=== PATIENT | female | born 1945 | race Caucasian/White ===

== ENCOUNTER 2016-03-15 08:28 | Day surgery (SDC) | payer MEDICARE, BC ==
[~2016-03-15] VITALS: Ht 161.3 cm; Wt 52.7 kg
[2016-03-15] VITALS (7 sets, daily range): BP systolic 108–140; BP diastolic 68–92; PULSE 64–88; TEMP 97.9–98
[~2016-03-15 08:28] MED LIST: ASPIRIN E.C. 8181 MG PO; ATROVENT NASAL15 ML NS; BETAPACE 120MG120 MG PO; BRILINTA90 MG PO; CALCIUM 600MG+D1 TAB PO; CALCIUM CARBONATE PO; CEPHALEXIN500 M1 PO; COLACE 100100 MG/CAP PO; HYDROCHLOR50 MG PO; INTESTINAL FORMULA PO; LIPITOR 10MG10 MG PO; LIPITOR 40MG TA40 MG PO; NEXIUM 20MG20 MG PO; NITROSTAT0.4 MG/TAB SL; OCUVITE1 TA1 PO; OMEPRAZOLE20 MG PO; PRADAXA 150MG150 MG PO; PROTONIX 40MG T40 MG PO; TYLENOL 325MG325 MG PO; XANAX .25M0.25 MG/TA PO; XARELTO20 MG PO; ZEBETA 5MG5 MG PO; ZITHROMAX Z PA250 MG PO
[2016-03-15] MEDS ORDERED: PLAVIX 75MG TAB75 MG PO (08:35)
[2016-03-15] MEDS ORDERED: LOPRESSOR 550 MG/TAB PO (08:38)
[2016-03-15] MEDS ORDERED: XARELTO20 MG PO (08:38)
[2016-03-15 09:04] LABS: HEMATOCRIT 38.8 % (37.0-47.0); MEAN CELL VOLUME 95 fl (80.0-100.0); MEAN CORPUSCULAR HEMOGLOBIN 32 pg (27.0-31.0); MEAN CORPUSCULAR HGB CONC 34 g/dl (33.0-37.0); MEAN PLATELET VOLUME 10.4 fl (7.4-10.4); PLATELET COUNT 283 K/mm3 (130-400); RED BLOOD COUNT 4.09 M/mm3 (4.10-5.30); REDCELL DISTRIBUTION WIDTH-CV 12.8 % (11.5-14.5)
[2016-03-15 09:05] LABS: INR 2.3 (0.8-3.0); PROTHROMBIN TIME 25.9 SECONDS (9.7-12.8)
[2016-03-15 09:13] LABS: CALCIUM 9.6 mg/dL (8.4-10.2); CREATININE, serum 0.92 mg/dL (0.52-1.25); POTASSIUM 3.8 mmol/L (3.4-5.0)
[2016-03-15] MEDS ORDERED: BETAPACE 80MG80 MG PO (11:34)
== END 2016-03-15 12:15 | disposition home or self-care (01) ==
LOC: EUO 08:28 → COL.RAD 08:45 → EUO 08:45
PROVIDERS: Internal Medicine Cardiovascular Disease
DX: I48.91 Unspecified atrial fibrillation (principal); I25.10 Atherosclerotic heart disease of native coronary artery without angina pectoris; K21.9 Gastro-esophageal reflux disease without esophagitis; I10 Essential (primary) hypertension
CPT/HCPCS: J2250; J2704

== ENCOUNTER 2016-04-05 08:20 | Day surgery (SDC) | payer MEDICARE, BC ==
[~2016-04-05] VITALS: Ht 160 cm; Wt 53.1 kg
[~2016-04-05 08:20] MED LIST changes: +BETAPACE 80MG80 MG PO; +LOPRESSOR 550 MG/TAB PO; +PLAVIX 75MG TAB75 MG PO
[2016-04-05 08:51] VITALS: BP 120/90; PULSE 123; TEMP 97.2
[2016-04-05] MEDS ORDERED: BETAPACE 120MG120 MG PO (09:05)
[2016-04-05 09:08] LABS: MEAN CELL VOLUME 95 fl (80.0-100.0); MEAN CORPUSCULAR HEMOGLOBIN 31 pg (27.0-31.0); MEAN CORPUSCULAR HGB CONC 33 g/dl (33.0-37.0); MEAN PLATELET VOLUME 10.6 fl (7.4-10.4); PLATELET COUNT 198 K/mm3 (130-400); RED BLOOD COUNT 3.84 M/mm3 (4.10-5.30); WHITE BLOOD COUNT 5.8 K/mm3 (4.8-10.8)
[2016-04-05 09:09] LABS: HEMATOCRIT 36.5 % (37.0-47.0)
[2016-04-05 09:13] LABS: PROTHROMBIN TIME 22.4 SECONDS (9.7-12.8)
[2016-04-05 09:20] LABS: CALCIUM 9.1 mg/dL (8.4-10.2); CREATININE, serum 0.87 mg/dL (0.52-1.25); POTASSIUM 4.2 mmol/L (3.4-5.0)
[2016-04-05 11:48] VITALS: BP 101/61; PULSE 82
[2016-04-05 11:55] VITALS: BP 106/62; PULSE 62
[2016-04-05 12:10] VITALS: BP 124/65; PULSE 70
[2016-04-05 12:21] VITALS: BP 120/70; PULSE 71
[2016-04-05 12:36] VITALS: BP 120/70; PULSE 70
== END 2016-04-05 13:03 | disposition home or self-care (01) ==
LOC: EUO 08:20 → COL.RAD 08:30 → EUO 08:30 → COL.RAD 09:15 → EUO 13:03
PROVIDERS: Internal Medicine Cardiovascular Disease
DX: I48.0 Paroxysmal atrial fibrillation (principal); I25.10 Atherosclerotic heart disease of native coronary artery without angina pectoris; F41.9 Anxiety disorder, unspecified; K21.9 Gastro-esophageal reflux disease without esophagitis; I10 Essential (primary) hypertension; Z95.5 Presence of coronary angioplasty implant and graft; Z79.899 Other long term (current) drug therapy; Z79.82 Long term (current) use of aspirin; Z87.891 Personal history of nicotine dependence; R06.02 Shortness of breath; E78.2 Mixed hyperlipidemia
CPT/HCPCS: J2250; J2704; J3010

== ENCOUNTER 2016-05-03 07:46 | Day surgery (SDC) | payer MEDICARE, BC ==
[~2016-05-03] VITALS: Ht 162.6 cm; Wt 52.7 kg
[2016-05-03] MEDS ORDERED: BETAPACE160 MG PO (08:43)
[2016-05-03 09:04] LABS: HEMATOCRIT 38.4 % (37.0-47.0); HEMOGLOBIN 12.5 g/dl (12.5-16.0); MEAN CELL VOLUME 93 fl (80.0-100.0); MEAN CORPUSCULAR HEMOGLOBIN 30 pg (27.0-31.0); MEAN CORPUSCULAR HGB CONC 33 g/dl (33.0-37.0); MEAN PLATELET VOLUME 10.8 fl (7.4-10.4); PLATELET COUNT 209 K/mm3 (130-400); RED BLOOD COUNT 4.11 M/mm3 (4.10-5.30); REDCELL DISTRIBUTION WIDTH-CV 12.9 % (11.5-14.5); WHITE BLOOD COUNT 5.5 K/mm3 (4.8-10.8)
[2016-05-03 09:13] LABS: INR 2.2 (0.8-3.0); PROTHROMBIN TIME 24.6 SECONDS (9.7-12.8)
[2016-05-03 09:14] VITALS: BP 120/72; PULSE 81
[2016-05-03 09:29] LABS: CREATININE, serum 0.85 mg/dL (0.52-1.25); POTASSIUM 3.8 mmol/L (3.4-5.0)
[2016-05-03 09:56] VITALS: BP 126/66; PULSE 69
[2016-05-03 10:15] VITALS: BP 122/66; PULSE 62
[2016-05-03 10:31] VITALS: BP 116/76; PULSE 52
[2016-05-03 11:13] VITALS: BP 122/85; PULSE 62
== END 2016-05-03 11:14 | disposition home or self-care (01) ==
LOC: COL.RAD 07:46
PROVIDERS: Internal Medicine Cardiovascular Disease
DX: I48.0 Paroxysmal atrial fibrillation (principal); I25.10 Atherosclerotic heart disease of native coronary artery without angina pectoris; I10 Essential (primary) hypertension; K21.9 Gastro-esophageal reflux disease without esophagitis; Z95.5 Presence of coronary angioplasty implant and graft; I34.0 Nonrheumatic mitral (valve) insufficiency
CPT/HCPCS: J2704

== ENCOUNTER 2016-07-11 00:19 | Emergency (ER) | payer MEDICARE, BC ==
[~2016-07-11] VITALS: Ht 160 cm; Wt 52.7 kg
[~2016-07-11 00:19] MED LIST changes: +BETAPACE160 MG PO
[2016-07-11 00:22] VITALS: BP 129/71; TEMP 98.7
[2016-07-11] MEDS ORDERED: VISTARIL 2525 MG/CAP PO (00:41)
[2016-07-11] MEDS ORDERED: PREDNISONE10 MG PO (00:41)
[2016-07-11 00:50] VITALS: PULSE 62
== END 2016-07-11 00:51 | disposition home or self-care (01) ==
LOC: COL.ER 00:19
DX: L50.9 Urticaria, unspecified (principal); I25.10 Atherosclerotic heart disease of native coronary artery without angina pectoris; I10 Essential (primary) hypertension; Z79.01 Long term (current) use of anticoagulants; Z79.02 Long term (current) use of antithrombotics/antiplatelets
CPT/HCPCS: J7512

== ENCOUNTER 2016-08-08 21:53 | Emergency (ER) | payer MEDICARE, BC ==
[~2016-08-08] VITALS: Ht 160 cm; Wt 50.0 kg
[~2016-08-08 21:53] MED LIST changes: +PREDNISONE10 MG PO; +VISTARIL 2525 MG/CAP PO
[2016-08-08 22:24] VITALS: TEMP 96.8
[2016-08-09 00:04] VITALS: BP 162/73; PULSE 84
== END 2016-08-09 00:06 | disposition home or self-care (01) ==
LOC: COL.ER 21:53
DX: S30.860A Insect bite (nonvenomous) of lower back and pelvis, initial encounter (principal); W57.XXXA Bitten or stung by nonvenomous insect and other nonvenomous arthropods, initial encounter; L50.9 Urticaria, unspecified; I48.91 Unspecified atrial fibrillation; I10 Essential (primary) hypertension
CPT/HCPCS: J1200; J2930; J7030

== ENCOUNTER 2016-10-25 16:33 | Inpatient (IN) | payer MEDICARE, BC ==
[2016-10-25] VITALS (277 sets, daily range): BP systolic 126–130; BP diastolic 69; PULSE 77–83; TEMP 97.5–97.8; O2SAT 89–100
[~2016-10-25] VITALS: Ht 160 cm; Wt 48.2 kg
[2016-10-25] MEDS ORDERED: LOTRISONE CREAM15 GM TP (16:44)
[2016-10-25] MEDS ORDERED: PREVACID 30MG30 M1 PO (16:45)
[2016-10-25] MEDS ORDERED: HAIRSKINNAILS PO (16:45)
[2016-10-25] MEDS ORDERED: ATARAX 25MG25 MG/TAB PO (16:45)
[2016-10-25] MEDS ORDERED: MELATONIN5 M1 SL (16:46)
[2016-10-25] MEDS ORDERED: OCUVITE1 TA1 PO (16:46)
[2016-10-25 17:11] LABS: BASO % 0.4 % (0.0-2.0); EOS % 0.2 % (0-4.0); GRAN # 6.9 (1.4-6.5); GRAN % 84.2 % (42.2-75.2); LYMPH # 0.7 (1.2-3.4); LYMPH % 8.6 % (20.0-51.0); MEAN CELL VOLUME 94 fl (80.0-100.0); MEAN CORPUSCULAR HGB CONC 34 g/dl (33.0-37.0); MEAN PLATELET VOLUME 9.8 fl (7.4-10.4); MONO # 0.5 (0.1-0.6); PLATELET COUNT 204 K/mm3 (130-400); REDCELL DISTRIBUTION WIDTH-CV 13.1 % (11.5-14.5); WHITE BLOOD COUNT 8.2 K/mm3 (4.8-10.8)
[2016-10-25 17:12] LABS: PROTHROMBIN TIME 22.7 SECONDS (9.7-12.8)
[2016-10-25 17:15] LABS: PARTIAL THROMBOPLASTIN TIME 36.6 SECONDS (26.0-37.0)
[2016-10-25 17:20] LABS: HEMATOCRIT 34.9 % (37.0-47.0); HEMOGLOBIN 11.9 g/dl (12.5-16.0); MEAN CORPUSCULAR HEMOGLOBIN 32 pg (27.0-31.0)
[2016-10-25 17:23] LABS: ADJUSTED CALCIUM 8.9 mg/dL (8.4-10.2); ALANINE AMINOTRANSFERASE 31 U/L (9-52); ALBUMIN 3.7 gm/dL (3.5-5.0); ALKALINE PHOSPHATASE 81 U/L (50-136); ANION GAP 8 mmol/L (7-16); BILIRUBIN,TOTAL 1.8 mg/dL (0.0-1.0); BLOOD UREA NITROGEN 12 mg/dL (7-17); CALCIUM 8.7 mg/dL (8.4-10.2); CARBON DIOXIDE 25 mmol/L (22-30); CREATININE, serum 0.61 mg/dL (0.52-1.25); GLUCOSE 95 mg/dL (74-106); POTASSIUM 3.6 mmol/L (3.4-5.0); SODIUM 123 mmol/L (137-145); TOTAL PROTEIN 6.6 gm/dL (6.4-8.2)
[2016-10-25 17:27] LABS: CHLORIDE 89 mmol/L (98-107)
[2016-10-25 17:50] LABS: TROPONIN-I < 0.012 ng/mL (0.000-0.034)
[2016-10-25 20:21] LABS: B-TYPE NATRIURETIC PEPTIDE 1720 pg/mL (0-125)
[2016-10-25 21:37] LABS: PH 7 (5-8); SQUAMOUS EPITHELIAL None Seen /hpf; URINE APPEARANCE Clear; URINE BACTERIA None Seen /hpf; URINE BILIRUBIN Negative (NEGATIVE); URINE BLOOD Negative (NEGATIVE); URINE COLOR Colorless; URINE GLUCOSE Negative (NEGATIVE); URINE KETONE Negative (NEGATIVE); URINE RBC None Seen /hpf; URINE UROBILINOGEN Negative (NEGATIVE); URINE WBC 0-2 /hpf
[2016-10-26] VITALS (778 sets, daily range): BP systolic 101–120; BP diastolic 65–79; PULSE 63–77; TEMP 97–98; O2SAT 92–100
[2016-10-26 07:45] LABS: BASO % 0.4 % (0.0-2.0); EOS # 0.1 (0.0-0.7); EOS % 1.3 % (0-4.0); GRAN # 3.4 (1.4-6.5); GRAN % 73.3 % (42.2-75.2); LYMPH # 0.7 (1.2-3.4); LYMPH % 15.1 % (20.0-51.0); MEAN CELL VOLUME 95 fl (80.0-100.0); MEAN CORPUSCULAR HGB CONC 33 g/dl (33.0-37.0); MEAN PLATELET VOLUME 9.8 fl (7.4-10.4); MONO # 0.4 (0.1-0.6); MONO % 9.3 % (1.7-9.3); PLATELET COUNT 182 K/mm3 (130-400); RED BLOOD COUNT 3.55 M/mm3 (4.10-5.30); REDCELL DISTRIBUTION WIDTH-CV 13.1 % (11.5-14.5); WHITE BLOOD COUNT 4.6 K/mm3 (4.8-10.8)
[2016-10-26 07:46] LABS: HEMATOCRIT 33.7 % (37.0-47.0); HEMOGLOBIN 11.2 g/dl (12.5-16.0); MEAN CORPUSCULAR HEMOGLOBIN 32 pg (27.0-31.0)
[2016-10-26 07:50] LABS: CALCIUM 8.7 mg/dL (8.4-10.2); CREATININE, serum 0.59 mg/dL (0.52-1.25); POTASSIUM 3.7 mmol/L (3.4-5.0)
[2016-10-26 08:04] LABS: TROPONIN-I 0.048 ng/mL (0.000-0.034)
[2016-10-26] MEDS ORDERED: BETAPACE160 MG PO (11:50)
== END 2016-10-26 13:20 | disposition home or self-care (01) | DRG 309 ==
LOC: COL.ER 16:33 → ICU 17:29
PROVIDERS: Family Medicine
PROC: 5A2204Z Restoration of Cardiac Rhythm, Single (ICD-10-PCS; principal; 2016-10-26)
DX: I48.91 Unspecified atrial fibrillation (principal); E87.1 Hypo-osmolality and hyponatremia; I10 Essential (primary) hypertension; E86.0 Dehydration; Z95.5 Presence of coronary angioplasty implant and graft; Z87.891 Personal history of nicotine dependence
CPT/HCPCS: 99223-AI; 99239; J7030; J7050

== ENCOUNTER 2017-04-24 07:56 | Day surgery (SDC) | payer MEDICARE, BC ==
[~2017-04-24] VITALS: Ht 161.3 cm; Wt 50.9 kg
[~2017-04-24 07:56] MED LIST changes: +ATARAX 25MG25 MG/TAB PO; +HAIRSKINNAILS PO; +LOTRISONE CREAM15 GM TP; +MELATONIN5 M1 SL; +PREVACID 30MG30 M1 PO; -XANAX .25M0.25 MG/TA PO; +XANAX 0.5MG0.5 MG PO
[2017-04-24 08:29] VITALS: BP 99/54; PULSE 64; TEMP 98.2
[2017-04-24 08:41] LABS: HEMATOCRIT 40.3 % (37.0-47.0); HEMOGLOBIN 13.3 g/dl (12.5-16.0); MEAN CELL VOLUME 93 fl (80.0-100.0); MEAN CORPUSCULAR HEMOGLOBIN 31 pg (27.0-31.0); MEAN CORPUSCULAR HGB CONC 33 g/dl (33.0-37.0); MEAN PLATELET VOLUME 11.4 fl (7.4-10.4); PLATELET COUNT 224 K/mm3 (130-400); RED BLOOD COUNT 4.34 M/mm3 (4.10-5.30); REDCELL DISTRIBUTION WIDTH-CV 13.4 % (11.5-14.5)
[2017-04-24] MEDS ORDERED: XARELTO20 MG PO (08:44)
[2017-04-24 08:45] LABS: INR 2.8 (0.8-3.0); PROTHROMBIN TIME 33.3 SECONDS (9.7-12.8)
[2017-04-24] MEDS ORDERED: OMNICEF 300MG300 MG PO (08:49)
[2017-04-24 08:52] LABS: CALCIUM 8.7 mg/dL (8.4-10.2); CREATININE, serum 0.99 mg/dL (0.52-1.25); POTASSIUM 4.2 mmol/L (3.4-5.0)
[2017-04-24] MEDS ORDERED: BETAPACE160 MG PO (08:55)
[2017-04-24] MEDS ORDERED: PROTONIX 40MG T40 MG PO (08:57)
[2017-04-24] MEDS ORDERED: ASPIRIN E.C. 8181 MG PO (08:57)
[2017-04-24] MEDS ORDERED: CARAFATE 1GM1 G PO (08:58)
[2017-04-24] MEDS ORDERED: COLACE 100100 MG/CAP PO (08:58)
[2017-04-24 09:30] VITALS: BP 111/69; PULSE 64
[2017-04-24 09:45] VITALS: BP 114/60; PULSE 82
[2017-04-24 10:00] VITALS: BP 114/62; PULSE 82
[2017-04-24 10:15] VITALS: BP 115/53; PULSE 79
[2017-04-24 10:30] VITALS: BP 114/49; PULSE 73
== END 2017-04-24 15:00 ==
LOC: COL.CAR 07:56
PROVIDERS: Internal Medicine Cardiovascular Disease
DX: I48.1 Persistent atrial fibrillation (principal); Z79.01 Long term (current) use of anticoagulants; Z79.82 Long term (current) use of aspirin; I48.3 Typical atrial flutter; I25.10 Atherosclerotic heart disease of native coronary artery without angina pectoris; Z95.5 Presence of coronary angioplasty implant and graft; J40 Bronchitis, not specified as acute or chronic; I34.0 Nonrheumatic mitral (valve) insufficiency; I10 Essential (primary) hypertension; K21.9 Gastro-esophageal reflux disease without esophagitis; F41.9 Anxiety disorder, unspecified; Z88.6 Allergy status to analgesic agent; Z91.040 Latex allergy status; Z87.891 Personal history of nicotine dependence
CPT/HCPCS: J2704

== ENCOUNTER 2017-10-16 08:36 | Day surgery (SDC) | payer MEDICARE, BC ==
[~2017-10-16] VITALS: Ht 160 cm; Wt 50.2 kg
[2017-10-16] VITALS (7 sets, daily range): BP systolic 91–120; BP diastolic 54–89; PULSE 87–103; TEMP 97.8–98.6
[~2017-10-16 08:36] MED LIST changes: +CARAFATE 1GM1 G PO; +OMNICEF 300MG300 MG PO
[2017-10-16] MEDS ORDERED: VASOTEC 5MG5 MG/TAB PO (08:54)
[2017-10-16] MEDS ORDERED: LASIX 20MG TABL20 MG PO (08:55)
[2017-10-16] MEDS ORDERED: LEXAPRO 10MG10 MG PO (08:58)
[2017-10-16] MEDS ORDERED: CORDARONE200 MG/TAB PO (08:59)
[2017-10-16] MEDS ORDERED: K-TAB10 (09:02)
[2017-10-16 09:39] LABS: INR 1.3 (0.8-3.0); PROTHROMBIN TIME 14.4 SECONDS (9.7-12.8)
[2017-10-16 09:41] LABS: HEMATOCRIT 33.7 % (37.0-47.0); HEMOGLOBIN 10.8 g/dl (12.5-16.0); MEAN CELL VOLUME 97 fl (80.0-100.0); MEAN CORPUSCULAR HEMOGLOBIN 31 pg (27.0-31.0); MEAN CORPUSCULAR HGB CONC 32 g/dl (33.0-37.0); MEAN PLATELET VOLUME 10.2 fl (7.4-10.4); PLATELET COUNT 261 K/mm3 (130-400); RED BLOOD COUNT 3.46 M/mm3 (4.10-5.30); REDCELL DISTRIBUTION WIDTH-CV 14.3 % (11.5-14.5)
[2017-10-16 09:57] LABS: CALCIUM 7.9 mg/dL (8.4-10.2); CREATININE, serum 0.84 mg/dL (0.52-1.25); POTASSIUM 4.1 mmol/L (3.4-5.0)
[2017-10-17] VITALS: BP 117/70; PULSE 103; TEMP 98.6
[2017-10-17 05:38] VITALS: BP 124/71; PULSE 105; TEMP 98.1
[2017-10-17 09:06] VITALS: BP 112/69; PULSE 93; TEMP 97.9
[2017-10-17] MEDS ORDERED: CORDARONE200 MG/TAB PO (10:22)
[2017-10-17] MEDS ORDERED: ZEBETA 5MG5 MG PO (10:23)
== END 2017-10-17 14:42 | disposition home or self-care (01) ==
LOC: COL.CAR 08:36 → MEDICAL 14:06 → COL.CAR 10-17 14:42
PROVIDERS: Internal Medicine Cardiovascular Disease
DX: I48.0 Paroxysmal atrial fibrillation (principal); I11.0 Hypertensive heart disease with heart failure; I50.22 Chronic systolic (congestive) heart failure; I44.7 Left bundle-branch block, unspecified; K21.9 Gastro-esophageal reflux disease without esophagitis; Z88.7 Allergy status to serum and vaccine; Z88.6 Allergy status to analgesic agent; Z91.040 Latex allergy status; Z79.01 Long term (current) use of anticoagulants; Z87.891 Personal history of nicotine dependence; Z80.3 Family history of malignant neoplasm of breast
CPT/HCPCS: OP; C1769; C1777; C1882; C1894; C1898; C1900; J0690; J2250; J3010; J7030; J7050

== ENCOUNTER 2017-11-12 07:32 | Day surgery (SDC) | payer MEDICARE, BC ==
[2017-11-12] VITALS (7 sets, daily range): BP systolic 103–115; BP diastolic 64–75; PULSE 69–90; TEMP 97.7–98
[~2017-11-12] VITALS: Ht 160.1 cm; Wt 48.0 kg
[~2017-11-12 07:32] MED LIST changes: +CORDARONE200 MG/TAB PO; +K-TAB10; +LASIX 20MG TABL20 MG PO; +LEXAPRO 10MG10 MG PO; +VASOTEC 5MG5 MG/TAB PO
[2017-11-12 08:15] LABS: HEMATOCRIT 35.3 % (37.0-47.0); HEMOGLOBIN 11.5 g/dl (12.5-16.0); MEAN CELL VOLUME 93 fl (80.0-100.0); MEAN CORPUSCULAR HEMOGLOBIN 30 pg (27.0-31.0); MEAN CORPUSCULAR HGB CONC 33 g/dl (33.0-37.0); MEAN PLATELET VOLUME 10.6 fl (7.4-10.4); PLATELET COUNT 214 K/mm3 (130-400); RED BLOOD COUNT 3.78 M/mm3 (4.10-5.30); REDCELL DISTRIBUTION WIDTH-CV 13.7 % (11.5-14.5)
[2017-11-12] MEDS ORDERED: TYLENOL 500MG500 MG PO (08:21)
[2017-11-12] MEDS ORDERED: TYLENOL PM EXTR1 TA1 PO (08:21)
[2017-11-12 08:22] LABS: INR 5.8 (0.8-3.0); PROTHROMBIN TIME 66.3 SECONDS (9.7-12.8)
[2017-11-12] MEDS ORDERED: CORDARONE200 MG/TAB PO ×2 (08:24→10:45)
[2017-11-12] MEDS ORDERED: ZEBETA 5MG5 MG PO (08:26)
[2017-11-12 08:27] LABS: CALCIUM 8.7 mg/dL (8.4-10.2); CREATININE, serum 1.02 mg/dL (0.52-1.25); POTASSIUM 3.7 mmol/L (3.4-5.0)
[2017-11-12 09:13] LABS: ALBUMIN 3.1 gm/dL (3.5-5.0); BILIRUBIN UNCONJUGATED 1.1 mg/dL (0.0-1.1); BILIRUBIN,DIRECT 0.4 mg/dL (0.0-0.4); BILIRUBIN,TOTAL 1.5 mg/dL (0.0-1.0); TOTAL PROTEIN 5.7 gm/dL (6.4-8.2)
== END 2017-11-12 11:23 | disposition home or self-care (01) ==
LOC: COL.CAR 07:32
PROVIDERS: Internal Medicine Cardiovascular Disease
DX: I48.0 Paroxysmal atrial fibrillation (principal); I48.4 Atypical atrial flutter; Z95.810 Presence of automatic (implantable) cardiac defibrillator; F41.9 Anxiety disorder, unspecified; I11.0 Hypertensive heart disease with heart failure; I50.22 Chronic systolic (congestive) heart failure; I25.10 Atherosclerotic heart disease of native coronary artery without angina pectoris; Z95.5 Presence of coronary angioplasty implant and graft; D50.9 Iron deficiency anemia, unspecified; Z79.899 Other long term (current) drug therapy; Z79.01 Long term (current) use of anticoagulants; Z87.891 Personal history of nicotine dependence; E78.5 Hyperlipidemia, unspecified; Z79.82 Long term (current) use of aspirin; J18.9 Pneumonia, unspecified organism; J40 Bronchitis, not specified as acute or chronic
CPT/HCPCS: J2405; J2704; J7030

== ENCOUNTER 2018-01-27 06:45 | Day surgery (SDC) | payer MEDICARE, BC ==
[~2018-01-27] VITALS: Ht 160.1 cm; Wt 44.1 kg
[2018-01-27] VITALS (7 sets, daily range): BP systolic 118–138; BP diastolic 60–73; PULSE 62–70; TEMP 97.9–98
[~2018-01-27 06:45] MED LIST changes: +TYLENOL 500MG500 MG PO; +TYLENOL PM EXTR1 TA1 PO
[2018-01-27 07:44] LABS: HEMOGLOBIN 10.7 g/dl (12.5-16.0); MEAN CELL VOLUME 85 fl (80.0-100.0); MEAN CORPUSCULAR HEMOGLOBIN 27 pg (27.0-31.0); MEAN CORPUSCULAR HGB CONC 32 g/dl (33.0-37.0); PLATELET COUNT 188 K/mm3 (130-400); RED BLOOD COUNT 3.94 M/mm3 (4.10-5.30); REDCELL DISTRIBUTION WIDTH-CV 18.4 % (11.5-14.5)
[2018-01-27 07:45] LABS: HEMATOCRIT 33.6 % (37.0-47.0)
[2018-01-27 07:53] LABS: INR 1.9 (0.8-3.0); PROTHROMBIN TIME 21.2 SECONDS (9.7-12.8)
[2018-01-27 07:58] LABS: CALCIUM 8.5 mg/dL (8.4-10.2); CREATININE, serum 0.96 mg/dL (0.52-1.25); POTASSIUM 4.1 mmol/L (3.4-5.0)
[2018-01-27] MEDS ORDERED: LANOXIN 0.120.125 MG PO (08:05)
== END 2018-01-27 10:51 | disposition home or self-care (01) ==
LOC: COL.CAR 06:45
PROVIDERS: Internal Medicine Cardiovascular Disease
DX: I48.0 Paroxysmal atrial fibrillation (principal); I11.0 Hypertensive heart disease with heart failure; I50.22 Chronic systolic (congestive) heart failure; K21.9 Gastro-esophageal reflux disease without esophagitis; F41.9 Anxiety disorder, unspecified; Z79.899 Other long term (current) drug therapy; Z95.810 Presence of automatic (implantable) cardiac defibrillator; Z87.891 Personal history of nicotine dependence; Z79.01 Long term (current) use of anticoagulants; I25.10 Atherosclerotic heart disease of native coronary artery without angina pectoris
CPT/HCPCS: J2405; J2704

== ENCOUNTER → 2018-05-16 | Outpatient (CLI) | payer MEDICARE, BC ==
[~2018-05-16] MED LIST changes: +LANOXIN 0.120.125 MG PO
== END ==
LOC: COL.RAD 06:57
DX: K82.8 Other specified diseases of gallbladder (principal)
CPT/HCPCS: A9537